=== PATIENT | male | born 1995 | race Caucasian/White ===

== ENCOUNTER 2022-06-17 13:41 | Emergency (ER) | payer OTHER, SELFPAY ==
--- NOTE | ~2022-06-17 | XR_ITS ---
EXAM: XR foot LT min 3V DATE: 06/17/2022 14:29 HISTORY: LOG FELL ON TOP OF FOOT,1 2 DISTAL METATARSAL PAIN . COMPARISON: None. FINDINGS: Normal mineralization. No fracture or dislocation. No lytic or blastic lesion. Joint space s are maintained. Os navicularis. No erosion or periosteal change. Forefoot soft tissue swelling. IMPRESSION: No acute osseous finding in the left foot. Reviewed, dictated and finalized at location [facility]
[2022-06-17 13:55] VITALS: BP 135/91; PULSE 118; RESP 16; TEMP 37.6; O2SAT 100
[2022-06-17] MEDS: TETANUS,DIPHTHERIA,AC PERTUSSIS ADULT (0.5 ML) BOOSTRIX IM (14:44)
--- NOTE | 2022-06-17 14:58 | ED.GENADULT ---
HPI - General Adult General Chief complaint: Extremity Injury, Lower Stated complaint: a log fell on left foot Source: patient Mode of arrival: ambulatory Limitations: no limitations History of Present Illness HPI narrative: Patient presents for evaluation of left foot pain. He indicates he was standing in a tree cutting down a limb when it fell approximately 1 ft and landed on his left foot. He was wearing shoes at the time of the event. He now reports bruising, swelling and pain at the affected area. He rates his pain 5/10 in severity, described as throbbing. He has some tingling in his left foot. He took 600 mg of ibuprofen for his pain. Date of last tetanus unknown. Pain is worse with weight-bearing and ambulation. Related Data Home Medications Medication Instructions Recorded Confirmed No Home Medications 06/17/22 06/17/22 Allergies Allergy/AdvReac Type Severity Reaction Status Date / Time No Known Allergies Allergy Unverified 07/29/15 11:36 Review of Systems Review of Systems: CONSTITUTIONAL: Denies fever, chills, or sweats. EYES: Denies visual changes, redness, or discharge. ENT: Denies rhinorrhea, congestion, sore throat, or otalgia. CARDIOVASCULAR: Denies chest pain, palpitations, or edema. RESPIRATORY: Denies cough or dyspnea. GASTROINTESTINAL: Denies abdominal pain, nausea, vomiting, or diarrhea. GENITOURINARY: Denies dysuria or hematuria. SKIN: Reports bruising to the left foot MUSCULOSKELETAL: Reports pain and swelling to left foot. NEUROLOGIC: Denies headache, numbness, dizziness, or weakness. PSYCHIATRIC: Denies anxiety or depression. [facility] Past Medical History Medical History No pertinent past medical history Surgical History Surgical History H/O wisdom tooth extraction Family History Family History Mother Family history non-contributory Social History Social History Smoking status: Current every day smoker Tobacco type: e-cigarettes/vaping Substance use: never Additional living arrangements comments: Lives with fiance Gender identity (if verbalized by the patient): Male Sexual Orientation (if Verbalized by the Patient): Straight or Heterosexual Spiritual care concerns: No Exam Narrative: GENERAL: Well-appearing, well-nourished, and in no acute distress. HEAD: Normocephalic, atraumatic. EYES: PERRLA and EOMI. ENT: Nares clear, no rhinorrhea or epistaxis. Mucous membranes moist. Oropharynx without tonsillar hypertrophy exudate or other lesions. Bilateral TMs pearly schultz nonbulging NECK: Supple. No adenopathy or masses. No carotid bruits or JVD CHEST: Clear to auscultation. No respiratory distress. No wheezes rales or rhonchi HEART: Regular rate and rhythm. No murmur heard. Normal peripheral pulses. ABDOMEN: Soft, nontender, nondistended, normal active bowel sounds. EXTREMITIES: Normal range of motion. No edema. SKIN: There is ecchymosis noted to dorsal aspect of left foot overlying distal aspect of 2nd and 3rd metatarsals NEURO: No focal deficits. Alert and oriented x3. PSYCH: Normal mood and affect. Course Course Emergency Course: This is a 26-year-old male who presented for evaluation of left foot pain following an injury just prior to arrival. X-ray negative for fracture. Exam consistent with contusion. He was updated on his tetanus while here. Ibuprofen for pain at home. Advised on RICE therapy. Follow up with primary provider. Go to ER for worsening symptoms. Pt in agreement with plan of care Level of Care: Express Care Visit Vital Signs Vital signs: Vital Signs Temperature 37.6 C H 06/17/22 13:55 Pulse Rate 118 H 06/17/22 13:55 Respiratory Rate 16 06/17/22 13:55 Blood Pressure 135/91 H
== END 2022-06-17 15:03 | disposition home or self-care (01) ==
PROVIDERS: Emergency Provider Nurse Practitioner; PCP Internal Medicine
DX: S90.32XA Contusion of left foot, initial encounter (principal); W20.8XXA Other cause of strike by thrown, projected or falling object, initial encounter; Z23 Encounter for immunization; F17.290 Nicotine dependence, other tobacco product, uncomplicated
CPT/HCPCS: 73630; 90471; 90715; 99213; G0463

== ENCOUNTER 2022-12-31 10:17 | Emergency (ER) | payer OTHER, SELFPAY ==
[2022-12-31 10:18] VITALS: BP 112/90; PULSE 78; RESP 16; TEMP 36.2; O2SAT 100
[2022-12-31 10:31] VITALS: BP 128/87; PULSE 110; RESP 16; O2SAT 100
--- NOTE | 2022-12-31 10:37 | ED.NAVMDI ---
HPI - Nausea/Vomiting/Diarrhea General Chief complaint: Nausea/Vomiting/Diarrhea Stated complaint: N/V Time Seen by Provider: 12/31/22 10:30 Source: patient Mode of arrival: ambulatory Limitations: no limitations History of Present Illness HPI Narrative: Gian is a 27-year-old male patient presenting to the clinic today with complaints of nausea and vomiting after drinking alcohol last night. He reports that he has been vomiting all night long. He is currently dry heaving this morning. Related Data Allergies Allergy/AdvReac Type Severity Reaction Status Date / Time No Known Allergies Allergy Unverified 07/29/15 11:36 Review of Systems Review of Systems: Pertinent positives per HPI. Patient denies any fever, chills, rash, headache, visual changes, dizziness, cough, runny nose, sore throat, shortness of breath, chest pain, palpitations, nausea, vomiting, diarrhea, constipation, abdominal pain, or any urinary issues. PMFSH Past Medical History Medical History No pertinent past medical history Surgical History Surgical History H/O wisdom tooth extraction Family History Family History Mother Family history non-contributory Social History Social History Smoking status: Current every day smoker Tobacco type: e-cigarettes/vaping Substance use: never Additional living arrangements comments: Lives with fiance Gender identity (if verbalized by the patient): Male Sexual Orientation (if Verbalized by the Patient): Straight or Heterosexual Spiritual care concerns: No Comments At the time of my signature, I reviewed and agree with the nursing past medical, surgical, social, and family history. There is no relevant family history pertinent to the patient complaint. Exam Narrative: General: Well-developed, well nourished, in no apparent distress. Head: Normocephalic, atraumatic. Cardio: Regular rate and rhythm, s1 and s2 normal, no murmur appreciated. Resp: Clear to auscultation bilaterally, no rhonchi, rales, wheezing or rubs. Abdomen: Soft, pliable, bowel sounds present in all quadrants, mild tender to palpation over the epigastric, no organomegly, no CVAT tenderness. Course Course Emergency Course: Portions of this record may have been created with voice recognition software. Vital Signs Vital signs: Vital Signs Temperature 36.2 C L 12/31/22 10:18 Pulse Rate 78 12/31/22 10:18 Respiratory Rate 16 12/31/22 10:18 Blood Pressure 112/90 12/31/22 10:18 Pulse Oximetry 100 12/31/22 10:18 Temperature 36.2 C L 12/31/22 10:18 Pulse Rate 78 12/31/22 10:18 Respiratory Rate 16 12/31/22 10:18 Blood Pressure 112/90 12/31/22 10:18 Pulse Oximetry 100 12/31/22 10:18 Vital signs reviewed MDM - Nausea/Vomiting/Diarrhea MDM Narrative Medical decision making narrative: At the time of visit patient is resting on the exam table. I suspect patient has acute nausea and vomiting due to alcohol use. CBC, CMP, and lipase was performed and were all unremarkable. IV Zofran and a L fluids was given in the ER . patient has not had any vomiting episodes since fluids and Zofran was administered. Supportive measures were discussed with the patient he voiced understanding discharge instructions and agrees to the treatment plan. Differential Diagnosis Differential diagnosis: Likely gastroenteritis and other ( Alcohol induced nausea and vomiting) Lab Data 12/31/22 10:53 12/31/22 10:53 Labs: Lab Results 12/31/22 Range/Units 10:53 WBC 7.7 (4.5-10.0) K/mm3 RBC 4.79 (4.6-6.20) M/mm3 Hgb 14.6 (14.0-18.0) g/dL Hct 43.2 (42.0-52.0) % MCV 90.2 (80-100) fl MCH 30.5 (26-34) pg MCHC 33.8 (32-36)
[2022-12-31] MEDS: SODIUM CHLORIDE 0.9% IV 1,000 ML 999 ML IV CONT (10:52)
[2022-12-31] MEDS: ONDANSETRON INJ 4 MG/2 ML VIAL IV PUSH (10:52)
[2022-12-31 11:09] LABS: Basophils Percent Auto 0.5 % (0.2-1.2); Eosinophils Absolute Auto 0.1 K/mm3 (0-0.3); Eosinophils Percent Auto 1.3 % (0-4.4); Hematocrit 43.2 % (42.0-52.0); Hemoglobin 14.6 g/dL (14.0-18.0); Immature Granulocyte Absolute 0.04 K/mm3 (0.00-0.031); Immature Granulocyte Percent A 0.5 % (0-0.5); Lymphocytes Absolute Auto 0.89 K/mm3 (0.9-3.2); Lymphocytes Percent Auto 11.5 % (18.3-44.2); Mean Corpuscular HGB Conc 33.8 g/dl (32-36); Mean Corpuscular Hemoglobin 30.5 pg (26-34); Mean Corpuscular Volume 90.2 fl (80-100); Monocytes Absolute Auto 0.6 K/mm3 (0.1-0.6); Monocytes Percent Auto 7.3 % (2.6-8.5); Neutrophils Absolute Auto 6.1 K/mm3 (1.3-6.7); Neutrophils Percent Auto 78.9 % (45.5-73.1); Platelet Count Result 172 k/mm3 (150-375); Red Blood Count 4.79 M/mm3 (4.6-6.20); White Blood Count 7.7 K/mm3 (4.5-10.0)
[2022-12-31 11:27] LABS: Alanine Aminotransferase 49 U/L (6-50); Albumin Level 5.1 g/dL (3.5-5.1); Alkaline Phosphatase 94 U/L (38-126); Anion Gap 9 mmol/L (8-16); Aspartate Amino Transferase 52 U/L (17-59); Bilirubin,Total 1.1 mg/dL (0.2-1.3); Blood Urea Nitrogen 14 mg/dL (9-20); Calcium 9.4 mg/dL (8.4-10.2); Carbon Dioxide 30 mmol/L (22-30); Chloride 102 mmol/L (98-107); Estimated CRCL calculation 126 ml/min; Estimated Glomerular Filt Rate > 60; Glucose 98 mg/dL (65-110); Lipase 28 U/L (23-300); Potassium 3.8 mmol/L (3.4-5.0); Sodium 141 mmol/L (137-145)
[2022-12-31 11:30] VITALS: BP 123/70; PULSE 100; RESP 16; O2SAT 100
[2022-12-31 12:30] VITALS: BP 121/61; PULSE 90; RESP 16; O2SAT 99
== END 2022-12-31 12:30 | disposition home or self-care (01) ==
PROVIDERS: Emergency Medicine; Emergency Provider Nurse Practitioner Family; PCP Internal Medicine
DX: R11.2 Nausea with vomiting, unspecified (principal); F17.290 Nicotine dependence, other tobacco product, uncomplicated
CPT/HCPCS: 36415; 80053; 83690; 85025; 96361; 96374; 99284; J2405; J7030

== ENCOUNTER 2023-04-23 17:34 | Emergency (ER) | payer OTHER, SELFPAY ==
--- NOTE | 2023-04-23 17:35 | ED.URI ---
HPI - URI/Sore Throat General Chief Complaint: Upper Respiratory Infection Stated Complaint: Bodyahce, Chills Time Seen by Provider: 04/23/23 17:34 Source: patient Mode of arrival: ambulatory Limitations: no limitations History of Present Illness HPI Narrative: Ankita is a 27-year-old male patient presenting to the clinic today with complaints of body aches and chills. He reports symptoms just started this morning. Denies any chest pain or shortness of breath. Denies any known fever. MD elicited complaint: cough and nasal congestion Related Data Allergies Allergy/AdvReac Type Severity Reaction Status Date / Time No Known Allergies Allergy Unverified 04/23/23 17:48 Review of Systems Review of Systems: Pertinent positives per HPI. Patient denies any fever, rash, headache, visual changes, dizziness, cough, shortness of breath, chest pain, palpitations, nausea, vomiting, diarrhea, constipation, abdominal pain, or any urinary issues. PMFSH Past Medical History Medical History No pertinent past medical history Surgical History Surgical History H/O wisdom tooth extraction Family History Family History Mother Family history non-contributory Social History Social History Smoking status: Current every day smoker Tobacco type: e-cigarettes/vaping Substance use: never Additional living arrangements comments: Lives with fiance Gender identity (if verbalized by the patient): Male Sexual Orientation (if Verbalized by the Patient): Straight or Heterosexual Spiritual care concerns: No Comments At the time of my signature, I reviewed and agree with the nursing past medical, surgical, social, and family history. There is no relevant family history pertinent to the patient complaint. Exam Narrative: General: Well-developed, well nourished, in no apparent distress Head: Normocephalic, atraumatic Eyes: Pupils equally round and reactive to light bilaterally, EOM intact, sclera and conjunctive clear, no discharge, lids normal Ears: TMs intact and clear, ear canals clear, no drainage, grossly hearing normal. Nose: Nares patent, no discharge, no inflammation, no sinus tenderness. Mouth: Oral pharynx without lesions or masses, good dentition, MMM. Neck: Supple, trachea midline, no enlargement of anterior or posterior cervical nodes, no thyroid masses or goiter palpable. Cardio: Regular rate and rhythm, s1 and s2 normal, no murmur appreciated. Resp: Clear to auscultation bilaterally, no rhonchi, rales, wheezing or rubs Course Course Emergency Course: Portions of this record may have been created with voice recognition software. Level of Care: Express Care Visit Vital Signs Vital signs: Vital signs reviewed MDM - URI/Sore Throat MDM Narrative Medical decision making narrative: At the time of visit patient is resting comfortably on the exam table. Patient appears to be nontoxic. COVID and influenza testing was positive in the clinic today. Patient was positive for influenza a and COVID. Supportive measures were discussed with the patient and they voiced understanding discharge instructions and agrees to treatment plan. Return precautions reviewed Differential Diagnosis Differential diagnosis: Likely upper respiratory infection, otitis media, sinusitis, viral infection, bronchitis, influenza, pharyngitis and other (COVID) Discharge Plan Discharge Clinical Impression: COVID-19, Influenza A Patient Disposition: Home, Self-Care Condition: Stable Instructions: Antibiotic Form, Influenza (ED), COVID-19 (Coronavirus Disease 2019) (ED), How to Recover from COVID-19 at Home (ED) Additional Instructions: COVID testing was positive in the clinic today. Influe
[2023-04-23 17:43] VITALS: BP 128/78; PULSE 108; RESP 16; TEMP 37.2; O2SAT 100
== END 2023-04-23 17:55 | disposition home or self-care (01) ==
PROVIDERS: Emergency Provider Nurse Practitioner Family; PCP Internal Medicine
DX: U07.1 COVID-19 (principal); J10.1 Influenza due to other identified influenza virus with other respiratory manifestations; F17.290 Nicotine dependence, other tobacco product, uncomplicated
CPT/HCPCS: 87426; 87804; 99213; C9803; G0463